=== PATIENT | male | born 1955 | race Caucasian/White ===

== ENCOUNTER → 2016-03-31 | Outpatient (REF) | payer MEDICARE ==
[~2016-03-31] MED LIST: /DULO30CA OR; /FEXO18TA OR; ALBU83IN INH; ALLE25CA; ASPI81TA45 OR; ASPI81TA83 OR; ASPI81TA85 PO; BABY81CH; BABY81CH OR; BACT800T; BENA25CA2 PO; CARI350T OR; CEFD300C OR; CLONIPINE IT; COLA100C PO; COLA100C2; COLA100C2 OR; COMBAER6 INH; COMBVENT; COMBVENT INH; COUM1TAB17 PO; DILAUDID IT; DULE100A INH; HYDR12.55 PO; LINZ290C PO; LISI10TA4 PO; LODINE; LOVE0.8I SC; LYRI150C OR; LYRI150C PO; LYRI75CA; LYRI75CA OR; MS C15TA5; OPAN10TA16 OR; ORASONE; OXYC10TA56; OXYC10TA97; OXYC40TA19; OXYC40TA19 OR; OXYC5CAP4; OXYC5CAP4 OR; PERC5TAB8 OR; PERC7.5T3 PO; PHEN 25; PHEN 25 PO; PRED5TA PO; PROA1AER INH; PROM50TA; SOMA350T; SOMA350T OR; TOPI25TA2 OR; ZOFR20TA PO; [UNRECOGNIZED DRUG - OTHER]; [UNRECOGNIZED DRUG - OTHER]; [UNRECOGNIZED DRUG - OTHER] PO; endocet OR
== END ==
LOC: M LAB REF 11:40
PROVIDERS: ATTEND Nurse Practitioner Adult Health
DX: L02.416 Cutaneous abscess of left lower limb (principal); L03.116 Cellulitis of left lower limb

== ENCOUNTER 2017-06-24 03:40 | Inpatient (IN) | payer MEDICARE ==
[2017-06-24] MEDS ORDERED: PROPOFOL 1,000 MG/100 ML VIAL As Ordered ×2 (03:42→08:37)
[2017-06-24] MEDS: ETOMIDATE INJ 20MG/10ML VIAL IV (03:55)
[2017-06-24] MEDS: SUCCINYLCHOLINE INJ 200 MG/10 ML VIAL (J0330) IV (03:56)
[2017-06-24] MEDS: PROPOFOL 1,000 MG in APPROPRIATE DILUENT 1 EA IV ×7 (03:58→14:48)
[2017-06-24 04:08] LABS: BASO # 0.1 10^3/uL (0.0-0.2); BASO % 0.6 % (0.0-1.0); EOS # 0.3 10^3/uL (0.0-0.50); EOS % 2.4 % (0.0-3.0); HEMATOCRIT 32.1 % (42.0-52.0); HEMOGLOBIN 9.6 g/dl (13.5-17.5); IMMATURE GRANULOCYTE % 0.6 % (0-3.0); LYMPH # 3.6 10^3/uL (1.5-4.5); LYMPH % 25.5 % (24.0-44.0); MEAN CORPUSCULAR HEMOGLOBIN 24.6 pg (27.0-33.0); MEAN CORPUSCULAR HGB CONC 29.9 g/dl (32.0-36.5); MEAN CORPUSCULAR VOLUME 82.3 fl (80.0-96.0); NEUTROPHILS # 7.8 10^3/uL (1.8-7.7); NEUTROPHILS % 54.9 % (36.0-66.0); PLATELET COUNT, AUTOMATED 212 10^3/uL (150-450); RED CELL DISTRIBUTION WIDTH 17.5 % (11.5-14.5); WHITE BLOOD COUNT 14.2 10^3/uL (4.0-10.0)
[2017-06-24 04:09] LABS: ABG BASE EXCESS -9.9 (-2.0-2.0); ABG HCO3 20.2 MEQ/L (22.0-26.0); ABG O2 SATURATION 98.8 % (95.0-99.0); ABG PARTIAL PRESSURE O2 172.6 mmHg (75.0-100.0); ABG STANDARD HCO3 16.5 MEQ/L (22.0-26.0); ABG TOTAL CO2 22.3 MEQ/L (23.0-31.0)
[2017-06-24 04:10] LABS: ABG PARTIAL PRESSURE CO2 67.9 mmHg (35.0-45.0); ABG pH (ARTERIAL) 7.092 UNITS (7.350-7.450)
[2017-06-24] MEDS: VECURONIUM BROMIDE 10 MG VIAL IV ×2 (04:11→05:37)
[2017-06-24 04:17] LABS: ANION GAP 9 MEQ/L (8-16); BLOOD UREA NITROGEN 13 MG/DL (7-18); CALCIUM LEVEL 7.9 MG/DL (8.8-10.2); CARBON DIOXIDE LEVEL 23 MEQ/L (21-32); CHLORIDE LEVEL 107 MEQ/L (98-107); CREATININE FOR GFR 1.09 MG/DL (0.70-1.30); GLOMERULAR FILTRATION RATE > 60.0 (>49); GLUCOSE, FASTING 234 MG/DL (70-100); POTASSIUM SERUM 4.2 MEQ/L (3.5-5.1); SODIUM LEVEL 139 MEQ/L (136-145)
[2017-06-24] MEDS ORDERED: PROPOFOL 200 MG/20 ML VIAL As Ordered (04:21)
[2017-06-24] MEDS: FUROSEMIDE 100 MG/10 ML VIAL (J1940) IV (04:22)
[2017-06-24] MEDS: ALBUTEROL SULFATE 2.5 MG/0.5 ML INH NEB SOLN NEB ×2 (04:27→05:19)
[2017-06-24] MEDS: PROPOFOL 200 MG/20 ML VIAL IV (04:30)
[2017-06-24 04:36] LABS: LACTIC ACID SEPSIS PROTOCOL 5.7 MMOL/L (0.4-2.0)
[2017-06-24 04:39] LABS: MONO # 2.3 10^3/uL (0.0-0.8); POSITIVE DIFF POS FLAG
[2017-06-24 04:49] LABS: NT-PRO BNP 4836 PG/ML (<125)
[2017-06-24] MEDS: dexameTHASONE 20 MG/5 ML VIAL (J1100) IV (04:50)
[2017-06-24] MEDS: CEFUROXIME SODIUM 1.5 GM in D5W MINI-BAG PLUS 50 ML IV (05:17)
[2017-06-24] MEDS: HumaLOG INSULIN (NovoLOG) PER UNIT SC ×2 (06:00→12:00)
[2017-06-24] MEDS ORDERED: GLUCOSE 4 GM CHEW TABLET PO (06:15)
[2017-06-24] MEDS ORDERED: GLUCAGON FOR INJ 1 MG VIAL (J1610) SC (06:15)
[2017-06-24] MEDS ORDERED: DEXTROSE 50% 50 ML SYRINGE IV (06:15)
[2017-06-24 06:24] LABS: ALBUMIN 3.1 GM/DL (3.2-5.2); CPK CREATINE PHOSPHOKINASE 133 U/L (39-308)
[2017-06-24 06:35] LABS: CK-MB VALUE MASS 5.2 NG/ML (<3.6); TROPONIN I 1.62 NG/ML (< 0.10)
[2017-06-24] MEDS: MORPHINE 4 MG/ML 1ML VIAL/SYRINGE (J2270) IV (07:19)
[2017-06-24] MEDS ORDERED: SUCCINYLCHOLINE 100 MG/5 ML SYRINGE (J0330) (07:20)
[2017-06-24] MEDS ORDERED: VECURONIUM BROMIDE 10 MG VIAL (07:20)
[2017-06-24] MEDS ORDERED: ETOMIDATE INJ 20MG/10ML VIAL (07:20)
[2017-06-24 07:48] LABS: BEDSIDE GLUCOSE 123 MG/DL (80-115)
[2017-06-24] MEDS: CHLORHEXIDINE ORAL RINSE 0.12%/15ML 120ML BOTTLE MT (08:14)
[2017-06-24] MEDS: PANTOPRAZOLE 40MG INJ (PROTONIX) (C9113) IV (08:14)
[2017-06-24] MEDS: ENOXAPARIN 60 MG/0.6 ML SYR (J1650) SC (08:14)
[2017-06-24] MEDS: ATORVASTATIN 20 MG TAB PO (08:15)
[2017-06-24] MEDS: ASPIRIN 81 MG CHEW TABLET GT (08:15)
[2017-06-24] MEDS: AZITHROMYCIN INJ 500 MG, VIAL MATE ADAPTER 1 EACH in D5W 250 ML IV (08:15)
[2017-06-24] MEDS: IPRATROPIUM 0.5MG/ALBUTEROL 2.5MG INH SOL UD 3ML (DUONEB)(J7620) NEB ×2 (08:26→11:48)
[2017-06-24 08:35] LABS: INR 1.32; PROTHROMBIN TIME 16.6 SECONDS (12.4-14.5)
[2017-06-24 08:36] LABS: PARTIAL THROMBOPLASTIN TIME 39.1 SECONDS (26.8-37.9)
[2017-06-24 08:45] LABS: ALBUMIN 3.1 GM/DL (3.2-5.2); ALBUMIN/GLOBULIN RATIO 0.84 (1.00-1.93); ALKALINE PHOSPHATASE 146 U/L (45-117); ALT/SGPT 75 U/L (12-78); ANION GAP 6 MEQ/L (8-16); AST/SGOT 142 U/L (7-37); BILIRUBIN,TOTAL 0.4 MG/DL (0.2-1.0); BLOOD UREA NITROGEN 14 MG/DL (7-18); CALCIUM LEVEL 7.6 MG/DL (8.8-10.2); CARBON DIOXIDE LEVEL 27 MEQ/L (21-32); CHLORIDE LEVEL 107 MEQ/L (98-107); CHOLESTEROL LEVEL 156 MG/DL (< 200); CK-MB VALUE MASS 18.2 NG/ML (<3.6); CPK CREATINE PHOSPHOKINASE 279 U/L (39-308); CREATININE FOR GFR 0.88 MG/DL (0.70-1.30); GLOMERULAR FILTRATION RATE > 60.0 (>49); GLUCOSE, FASTING 117 MG/DL (70-100); LDH LACTATE DEHYDROGENASE 343 U/L (87-241); MB/CK RELATIVE INDEX 6.52 (< OR =4); PHOSPHORUS LEVEL 4.3 MG/DL (2.5-4.9); POTASSIUM SERUM 4.7 MEQ/L (3.5-5.1); SODIUM LEVEL 140 MEQ/L (136-145); TOTAL PROTEIN 6.8 GM/DL (6.4-8.2); TRIGLYCERIDES LEVEL 84 MG/DL (<150)
[2017-06-24 08:47] LABS: TROPONIN I 6.47 NG/ML (< 0.10)
[2017-06-24 08:56] LABS: ABG BASE EXCESS -2.3 (-2.0-2.0); ABG HCO3 24.3 MEQ/L (22.0-26.0); ABG O2 SATURATION 98.5 % (95.0-99.0); ABG PARTIAL PRESSURE CO2 50.1 mmHg (35.0-45.0); ABG STANDARD HCO3 22.6 MEQ/L (22.0-26.0); ABG TOTAL CO2 25.9 MEQ/L (23.0-31.0); ABG pH (ARTERIAL) 7.304 UNITS (7.350-7.450)
[2017-06-24] MEDS ORDERED: ENOXAPARIN 40 MG/0.4 ML SYRINGE (J1650) SC (09:00)
[2017-06-24] MEDS: methylPREDNISolone INJ 125 MG/2 ML VIAL (J2930) IV (10:54)
[2017-06-24] MEDS: TICAGRELOR 90 MG TABLET (BRILINTA) PO (10:54)
[2017-06-24 12:15] LABS: BEDSIDE GLUCOSE 181 MG/DL (80-115)
[2017-06-24] MEDS: cefTRIAXone SOD 2 GM in D5W 50 ML IV (13:00)
[2017-06-24 14:29] LABS: CK-MB VALUE MASS 98.3 NG/ML (<3.6); CPK CREATINE PHOSPHOKINASE 974 U/L (39-308); MB/CK RELATIVE INDEX 10.09 (< OR =4)
== END 2017-06-24 15:00 | disposition short-term general hospital (02) | DRG 208 ==
LOC: M ED 03:40 → M ED INP 05:54 → M ICU 06:41
PROC: 5A1935Z Respiratory Ventilation, Less than 24 Consecutive Hours (ICD-10-PCS; principal; 2017-06-24)
DX: J96.01 Acute respiratory failure with hypoxia (principal); J81.0 Acute pulmonary edema; E87.2 Acidosis; I24.9 Acute ischemic heart disease, unspecified; J96.02 Acute respiratory failure with hypercapnia; D64.9 Anemia, unspecified; J44.9 Chronic obstructive pulmonary disease, unspecified; Z79.52 Long term (current) use of systemic steroids; F17.200 Nicotine dependence, unspecified, uncomplicated; D72.829 Elevated white blood cell count, unspecified; R73.9 Hyperglycemia, unspecified; Z86.711 Personal history of pulmonary embolism; M54.5 Low back pain; Z91.041 Radiographic dye allergy status; Z85.118 Personal history of other malignant neoplasm of bronchus and lung; Z79.899 Other long term (current) drug therapy

== ENCOUNTER → 2017-08-03 | Outpatient (REF) | payer MEDICARE ==
[2017-08-03 19:31] LABS: IRON (FE) 16 UG/DL (65-175)
== END ==
LOC: M LAB REF 18:02
DX: D50.9 Iron deficiency anemia, unspecified (principal)
CPT/HCPCS: 83540

== ENCOUNTER → 2017-08-18 | Outpatient (CLI) | payer MEDICARE | LOC: M RAD 08:12 | DX: I73.9 Peripheral vascular disease, unspecified (principal) | CPT/HCPCS: 93925 ==

== ENCOUNTER → 2017-09-03 | Outpatient (REF) | payer MEDICARE ==
[2017-09-03 16:40] LABS: IRON (FE) 68 UG/DL (65-175)
== END ==
LOC: M LAB REF 16:17
DX: D64.9 Anemia, unspecified (principal)
CPT/HCPCS: 83540

== ENCOUNTER → 2017-09-14 | Outpatient (CLI) | payer MEDICARE ==
[2017-09-14 08:47] LABS: HEMATOCRIT 29.8 % (42.0-52.0); HEMOGLOBIN 9.3 g/dl (13.5-17.5); MEAN CORPUSCULAR HEMOGLOBIN 26.8 pg (27.0-33.0); MEAN CORPUSCULAR HGB CONC 31.2 g/dl (32.0-36.5); MEAN CORPUSCULAR VOLUME 85.9 fl (80.0-96.0); PLATELET COUNT, AUTOMATED 213 10^3/uL (150-450); RED BLOOD COUNT 3.47 10^6/uL (4.30-6.10); RED CELL DISTRIBUTION WIDTH 19.8 % (11.5-14.5); WHITE BLOOD COUNT 10.5 10^3/uL (4.0-10.0)
[2017-09-14 09:15] LABS: ALBUMIN 3.2 GM/DL (3.2-5.2); ALBUMIN/GLOBULIN RATIO 0.86 (1.00-1.93); ALKALINE PHOSPHATASE 71 U/L (45-117); ALT/SGPT 29 U/L (12-78); AST/SGOT 23 U/L (7-37); BILIRUBIN,DIRECT 0.1 MG/DL (0.0-0.2); BILIRUBIN,TOTAL 0.4 MG/DL (0.2-1.0); CHOLESTEROL LEVEL 116 MG/DL (<200); HDL CHOLESTEROL 52 MG/DL (>40); IRON (FE) 24 UG/DL (65-175); LDL CHOLESTEROL 53.6 MG/DL (<100); NON-HDL-C 64 MG/DL; PERCENT SATURATION 7.2 % (19.7-50.0); TOTAL IRON BINDING CAPACITY 334 UG/DL (250-450); TOTAL PROTEIN 6.9 GM/DL (6.4-8.2); TRIGLYCERIDES LEVEL 52 MG/DL (<150)
== END ==
LOC: M LAB 08:05
DX: D50.0 Iron deficiency anemia secondary to blood loss (chronic) (principal); I25.10 Atherosclerotic heart disease of native coronary artery without angina pectoris; I10 Essential (primary) hypertension
CPT/HCPCS: 83550

== ENCOUNTER → 2017-09-14 | Outpatient (CLI) | payer MEDICARE ==
[2017-09-14 09:20] LABS: ALBUMIN 3.2 GM/DL (3.2-5.2); ALBUMIN/GLOBULIN RATIO 0.89 (1.00-1.93); ALKALINE PHOSPHATASE 72 U/L (45-117); ALT/SGPT 27 U/L (12-78); ANION GAP 8 MEQ/L (8-16); AST/SGOT 23 U/L (7-37); BILIRUBIN,TOTAL 0.4 MG/DL (0.2-1.0); BLOOD UREA NITROGEN 23 MG/DL (7-18); CALCIUM LEVEL 8.4 MG/DL (8.8-10.2); CARBON DIOXIDE LEVEL 29 MEQ/L (21-32); CHLORIDE LEVEL 104 MEQ/L (98-107); CREATININE FOR GFR 0.87 MG/DL (0.70-1.30); GLOMERULAR FILTRATION RATE > 60.0 (>49); GLUCOSE, FASTING 96 MG/DL (70-100); POTASSIUM SERUM 4.4 MEQ/L (3.5-5.1); SODIUM LEVEL 141 MEQ/L (136-145); TOTAL PROTEIN 6.8 GM/DL (6.4-8.2)
== END ==
LOC: M LAB 08:11
DX: I10 Essential (primary) hypertension (principal)

== ENCOUNTER 2017-09-23 14:26 | Outpatient (CLI) | payer MEDICARE ==
[~2017-09-23 14:26] MED LIST changes: -/DULO30CA OR; -/FEXO18TA OR; -ALBU83IN INH; -ALLE25CA; -ASPI81TA45 OR; -ASPI81TA83 OR; -ASPI81TA85 PO; -BABY81CH; -BABY81CH OR; -BACT800T; -BENA25CA2 PO; -CARI350T OR; -CEFD300C OR; -CLONIPINE IT; -COLA100C PO; -COLA100C2; -COLA100C2 OR; -COMBAER6 INH; -COMBVENT; -COMBVENT INH; -COUM1TAB17 PO; -DILAUDID IT; -DULE100A INH; -HYDR12.55 PO; +IRON DEXTRAN INJ 25 MG in NS 50 ML IV; -LINZ290C PO; -LISI10TA4 PO; -LODINE; -LOVE0.8I SC; -LYRI150C OR; -LYRI150C PO; -LYRI75CA; -LYRI75CA OR; -MS C15TA5; -OPAN10TA16 OR; -ORASONE; -OXYC10TA56; -OXYC10TA97; -OXYC40TA19; -OXYC40TA19 OR; -OXYC5CAP4; -OXYC5CAP4 OR; -PERC5TAB8 OR; -PERC7.5T3 PO; -PHEN 25; -PHEN 25 PO; -PRED5TA PO; -PROA1AER INH; -PROM50TA; -SOMA350T; -SOMA350T OR; -TOPI25TA2 OR; -ZOFR20TA PO; -[UNRECOGNIZED DRUG - OTHER]; -[UNRECOGNIZED DRUG - OTHER]; -[UNRECOGNIZED DRUG - OTHER] PO; -endocet OR
[2017-09-23] MEDS ORDERED: IRON DEXTRAN IV (15:00)
[2017-09-23] MEDS ORDERED: NS IV (15:00)
[2017-09-23] MEDS: IRON DEXTRAN IV ×2 (15:25→16:38)
== END 2017-09-23 20:54 | disposition home or self-care (01) ==
LOC: M OPCLIICU 14:26 → M ICU 14:35 → M OPCLIICU 20:54
DX: D64.9 Anemia, unspecified (principal)
CPT/HCPCS: J1750

== ENCOUNTER → 2017-10-15 | Outpatient (CLI) | payer MEDICARE ==
[2017-10-15 09:19] LABS: HEMATOCRIT 29.7 % (42.0-52.0); HEMOGLOBIN 9.4 g/dl (13.5-17.5); MEAN CORPUSCULAR HEMOGLOBIN 27.1 pg (27.0-33.0); MEAN CORPUSCULAR HGB CONC 31.6 g/dl (32.0-36.5); MEAN CORPUSCULAR VOLUME 85.6 fl (80.0-96.0); PLATELET COUNT, AUTOMATED 185 10^3/uL (150-450); RED BLOOD COUNT 3.47 10^6/uL (4.30-6.10); RED CELL DISTRIBUTION WIDTH 20.3 % (11.5-14.5); WHITE BLOOD COUNT 8.3 10^3/uL (4.0-10.0)
[2017-10-15 10:06] LABS: ALBUMIN 3.2 GM/DL (3.2-5.2); ANION GAP 7 MEQ/L (8-16); BLOOD UREA NITROGEN 36 MG/DL (7-18); CALCIUM LEVEL 8.4 MG/DL (8.8-10.2); CARBON DIOXIDE LEVEL 28 MEQ/L (21-32); CHLORIDE LEVEL 109 MEQ/L (98-107); CREATININE FOR GFR 1.07 MG/DL (0.70-1.30); GLOMERULAR FILTRATION RATE > 60.0 (>49); GLUCOSE, FASTING 104 MG/DL (70-100); MAGNESIUM LEVEL 2.1 MG/DL (1.8-2.4); NT-PRO BNP 759 PG/ML (<125); PHOSPHORUS LEVEL 5.6 MG/DL (2.5-4.9); SODIUM LEVEL 144 MEQ/L (136-145)
[2017-10-15 10:08] LABS: POTASSIUM SERUM 5.3 MEQ/L (3.5-5.1)
== END ==
LOC: M LAB 08:49
DX: D50.0 Iron deficiency anemia secondary to blood loss (chronic) (principal); I50.32 Chronic diastolic (congestive) heart failure
CPT/HCPCS: 83735

== ENCOUNTER 2017-11-01 04:04 | Inpatient (IN) | payer MEDICARE ==
[2017-11-01 04:53] LABS: BASO # 0.1 10^3/uL (0.0-0.2); BASO % 0.8 % (0.0-1.0); EOS # 0.7 10^3/uL (0.0-0.50); EOS % 7.1 % (0.0-3.0); HEMATOCRIT 24.9 % (42.0-52.0); HEMOGLOBIN 7.8 g/dl (13.5-17.5); IMMATURE GRANULOCYTE % 0.4 % (0-3.0); LYMPH # 1.8 10^3/uL (1.5-4.5); LYMPH % 19.1 % (24.0-44.0); MEAN CORPUSCULAR HEMOGLOBIN 27.8 pg (27.0-33.0); MEAN CORPUSCULAR HGB CONC 31.3 g/dl (32.0-36.5); MEAN CORPUSCULAR VOLUME 88.6 fl (80.0-96.0); MONO % 10.9 % (0.0-5.0); NEUTROPHILS # 5.8 10^3/uL (1.8-7.7); NEUTROPHILS % 61.7 % (36.0-66.0); PLATELET COUNT, AUTOMATED 211 10^3/uL (150-450); RED BLOOD COUNT 2.81 10^6/uL (4.30-6.10); RED CELL DISTRIBUTION WIDTH 19.3 % (11.5-14.5); WHITE BLOOD COUNT 9.3 10^3/uL (4.0-10.0)
[2017-11-01 05:09] LABS: PROTHROMBIN TIME 16.4 SECONDS (12.1-14.4)
[2017-11-01 05:18] LABS: ALBUMIN 3.3 GM/DL (3.2-5.2); ALKALINE PHOSPHATASE 58 U/L (45-117); ALT/SGPT 18 U/L (12-78); ANION GAP 6 MEQ/L (8-16); AST/SGOT 17 U/L (7-37); BILIRUBIN,DIRECT < 0.1 MG/DL (0.0-0.2); BILIRUBIN,TOTAL 0.2 MG/DL (0.2-1.0); BLOOD UREA NITROGEN 28 MG/DL (7-18); CALCIUM LEVEL 8.5 MG/DL (8.8-10.2); CARBON DIOXIDE LEVEL 29 MEQ/L (21-32); CHLORIDE LEVEL 105 MEQ/L (98-107); CK-MB VALUE MASS 1.9 NG/ML (<3.6); CPK CREATINE PHOSPHOKINASE 81 U/L (39-308); CREATININE FOR GFR 1.12 MG/DL (0.70-1.30); GLOMERULAR FILTRATION RATE > 60.0 (>49); GLUCOSE, FASTING 109 MG/DL (70-100); LIPASE 132 U/L (73-393); MB/CK RELATIVE INDEX 2.34 (< OR =4); POTASSIUM SERUM 4.4 MEQ/L (3.5-5.1); SODIUM LEVEL 140 MEQ/L (136-145); TOTAL PROTEIN 6.6 GM/DL (6.4-8.2); TROPONIN I 0.02 NG/ML (< 0.10)
[2017-11-01] MEDS: PANTOPRAZOLE 40MG INJ (PROTONIX) (C9113) IV (07:59)
[2017-11-01] MEDS: PANTOPRAZOLE SODIUM 40 MG in D5W 50 ML IV ×5 (07:59→23:40)
[2017-11-01 08:32] LABS: IMMEDIATE SPIN CROSSMATCH 1 2
[2017-11-01] MEDS: NS 1,000 ML IV (10:00)
[2017-11-01] MEDS ORDERED: FLUTICASONE PROP 0.05% NASAL SPRAY 16 GM (FLONASE) NARES (11:15)
[2017-11-01] MEDS ORDERED: PILL CRUSHER/CUTTER 1 EACH XX (11:45)
[2017-11-01] MEDS: PREGABALIN 75 MG CAP(LYRICA) PO ×2 (12:26→20:51)
[2017-11-01] MEDS: MORPHINE 30 MG TAB **MSIR PO (12:26)
[2017-11-01] MEDS: ASPIRIN 81 MG ENTERIC TAB PO (12:27)
[2017-11-01] MEDS: MORPHINE 15 MG SA TAB PO ×2 (12:27→20:51)
[2017-11-01] MEDS: MULTIVITAMINS/MINERALS THERAP 1 TAB PO (12:27)
[2017-11-01] MEDS: FERROUS SULFATE 325MG TAB PO ×3 (12:28→20:51)
[2017-11-01] MEDS: DOCUSATE SODIUM 100 MG CAP PO ×3 (12:28→20:51)
[2017-11-01] MEDS: SUCRALFATE 1 GM TAB PO ×3 (14:49→20:51)
[2017-11-01] MEDS ORDERED: ALBUTEROL SULFATE 2.5 MG/0.5 ML INH NEB SOLN INH (15:15)
[2017-11-01 17:34] LABS: HEMATOCRIT 31.9 % (42.0-52.0); HEMOGLOBIN 10.1 g/dl (13.5-17.5); MEAN CORPUSCULAR HEMOGLOBIN 27.6 pg (27.0-33.0); MEAN CORPUSCULAR HGB CONC 31.7 g/dl (32.0-36.5); MEAN CORPUSCULAR VOLUME 87.2 fl (80.0-96.0); PLATELET COUNT, AUTOMATED 192 10^3/uL (150-450); RED BLOOD COUNT 3.66 10^6/uL (4.30-6.10); RED CELL DISTRIBUTION WIDTH 18.6 % (11.5-14.5); WHITE BLOOD COUNT 7.6 10^3/uL (4.0-10.0)
[2017-11-01] MEDS: ATORVASTATIN 20 MG TAB PO (20:51)
[2017-11-01] MEDS: MORPHINE 30 MG SA TAB PO (20:52)
[2017-11-01] MEDS: ADVAIR HFA 230/21MCG INHALER INH (23:28)
[2017-11-01 23:42] LABS: HEMATOCRIT 30.3 % (42.0-52.0); HEMOGLOBIN 9.6 g/dl (13.5-17.5)
[2017-11-02] MEDS: PANTOPRAZOLE SODIUM 40 MG in D5W 50 ML IV (05:16)
[2017-11-02] MEDS: MORPHINE 30 MG SA TAB PO (06:21)
[2017-11-02] MEDS: MORPHINE 30 MG TAB **MSIR PO (06:22)
[2017-11-02 06:31] LABS: BASO # 0.1 10^3/uL (0.0-0.2); BASO % 1.2 % (0.0-1.0); EOS # 0.5 10^3/uL (0.0-0.50); EOS % 7.5 % (0.0-3.0); HEMATOCRIT 29.9 % (42.0-52.0); HEMOGLOBIN 9.5 g/dl (13.5-17.5); IMMATURE GRANULOCYTE % 0.6 % (0-3.0); LYMPH # 1.3 10^3/uL (1.5-4.5); MEAN CORPUSCULAR HEMOGLOBIN 27.3 pg (27.0-33.0); MEAN CORPUSCULAR HGB CONC 31.8 g/dl (32.0-36.5); MEAN CORPUSCULAR VOLUME 85.9 fl (80.0-96.0); MONO # 0.9 10^3/uL (0.0-0.8); MONO % 13.2 % (0.0-5.0); NEUTROPHILS # 4.1 10^3/uL (1.8-7.7); NEUTROPHILS % 58.5 % (36.0-66.0); PLATELET COUNT, AUTOMATED 206 10^3/uL (150-450); RED BLOOD COUNT 3.48 10^6/uL (4.30-6.10); RED CELL DISTRIBUTION WIDTH 18.6 % (11.5-14.5)
[2017-11-02 07:01] LABS: ALBUMIN 3.2 GM/DL (3.2-5.2); ALBUMIN/GLOBULIN RATIO 0.82 (1.00-1.93); ALKALINE PHOSPHATASE 64 U/L (45-117); ALT/SGPT 22 U/L (12-78); ANION GAP 7 MEQ/L (8-16); AST/SGOT 25 U/L (7-37); BILIRUBIN,TOTAL 0.5 MG/DL (0.2-1.0); BLOOD UREA NITROGEN 14 MG/DL (7-18); CALCIUM LEVEL 8.9 MG/DL (8.8-10.2); CARBON DIOXIDE LEVEL 25 MEQ/L (21-32); CHLORIDE LEVEL 108 MEQ/L (98-107); CREATININE FOR GFR 0.74 MG/DL (0.70-1.30); GLOMERULAR FILTRATION RATE > 60.0 (>49); GLUCOSE, FASTING 99 MG/DL (70-100); MAGNESIUM LEVEL 2.1 MG/DL (1.8-2.4); POTASSIUM SERUM 3.9 MEQ/L (3.5-5.1); SODIUM LEVEL 140 MEQ/L (136-145); TOTAL PROTEIN 7.1 GM/DL (6.4-8.2)
[2017-11-02] MEDS ORDERED: LIDOCAINE 2% INJ 100 MG/5 ML SDV (FOR ANES.) As Ordered (08:37)
[2017-11-02] MEDS ORDERED: PROPOFOL 200 MG/20 ML VIAL As Ordered (08:37)
[2017-11-02] MEDS ORDERED: fentaNYL 100 MCG/2 ML INJECTION (J3010) As Ordered (08:37)
[2017-11-02] MEDS: ASPIRIN 81 MG ENTERIC TAB PO (09:29)
[2017-11-02] MEDS: MULTIVITAMINS/MINERALS THERAP 1 TAB PO (09:29)
[2017-11-02] MEDS: PREGABALIN 75 MG CAP(LYRICA) PO (09:29)
[2017-11-02] MEDS: SUCRALFATE 1 GM TAB PO (09:29)
[2017-11-02] MEDS: FERROUS SULFATE 325MG TAB PO (09:29)
[2017-11-02] MEDS: DOCUSATE SODIUM 100 MG CAP PO (09:29)
[2017-11-02] MEDS: PANTOPRAZOLE 40MG TAB (PROTONIX) PO (09:29)
[2017-11-02] MEDS ORDERED: SLF 3 ML SYR IV ×2 (09:45→14:00)
[2017-11-02] MEDS: ADVAIR HFA 230/21MCG INHALER INH (10:15)
== END 2017-11-02 11:15 | disposition home or self-care (01) | DRG 378 ==
LOC: M ED 04:04 → M ED INP 08:44 → M PCU 10:33
PROVIDERS: Emergency Medicine Pediatric Emergency Medicine
PROC: 0DB68ZX Excision of Stomach, Via Natural or Artificial Opening Endoscopic, Diagnostic (ICD-10-PCS; principal; 2017-11-02 08:00)
PROC: 30233N1 Transfusion of Nonautologous Red Blood Cells into Peripheral Vein, Percutaneous Approach (ICD-10-PCS; 2017-11-02 08:22)
DX: K92.2 Gastrointestinal hemorrhage, unspecified (principal); D62 Acute posthemorrhagic anemia; N17.9 Acute kidney failure, unspecified; I10 Essential (primary) hypertension; I25.10 Atherosclerotic heart disease of native coronary artery without angina pectoris; I73.9 Peripheral vascular disease, unspecified; M54.5 Low back pain; Z95.1 Presence of aortocoronary bypass graft; Z95.2 Presence of prosthetic heart valve; J44.9 Chronic obstructive pulmonary disease, unspecified; Z85.118 Personal history of other malignant neoplasm of bronchus and lung; Z79.899 Other long term (current) drug therapy; Z79.82 Long term (current) use of aspirin; K44.9 Diaphragmatic hernia without obstruction or gangrene

== ENCOUNTER → 2017-11-21 | Outpatient (CLI) | payer MEDICARE ==
[2017-11-21 12:01] LABS: BASO # 0.1 10^3/uL (0.0-0.2); BASO % 0.9 % (0.0-1.0); EOS # 0.7 10^3/uL (0.0-0.50); EOS % 8.7 % (0.0-3.0); HEMATOCRIT 36.9 % (42.0-52.0); HEMOGLOBIN 11.8 g/dl (13.5-17.5); IMMATURE GRANULOCYTE % 0.1 % (0-3.0); LYMPH # 1.8 10^3/uL (1.5-4.5); MEAN CORPUSCULAR HEMOGLOBIN 27.5 pg (27.0-33.0); MONO # 1.2 10^3/uL (0.0-0.8); MONO % 15.2 % (0.0-5.0); NEUTROPHILS % 52.1 % (36.0-66.0); PLATELET COUNT, AUTOMATED 197 10^3/uL (150-450); RED BLOOD COUNT 4.29 10^6/uL (4.30-6.10); RED CELL DISTRIBUTION WIDTH 16.9 % (11.5-14.5); WHITE BLOOD COUNT 7.7 10^3/uL (4.0-10.0)
[2017-11-21 12:11] LABS: INR 1.02; PROTHROMBIN TIME 13.5 SECONDS (12.1-14.4)
[2017-11-21 12:12] LABS: PARTIAL THROMBOPLASTIN TIME 32.2 SECONDS (25.4-37.6)
[2017-11-21 12:25] LABS: ANION GAP 6 MEQ/L (8-16); BLOOD UREA NITROGEN 19 MG/DL (7-18); CALCIUM LEVEL 8.7 MG/DL (8.8-10.2); CARBON DIOXIDE LEVEL 32 MEQ/L (21-32); CHLORIDE LEVEL 105 MEQ/L (98-107); CREATININE FOR GFR 0.93 MG/DL (0.70-1.30); GLOMERULAR FILTRATION RATE > 60.0 (>49); GLUCOSE, FASTING 88 MG/DL (70-100); POTASSIUM SERUM 4.6 MEQ/L (3.5-5.1); SODIUM LEVEL 143 MEQ/L (136-145)
== END ==
LOC: M LAB 11:39
DX: Z01.818 Encounter for other preprocedural examination (principal); I70.213 Atherosclerosis of native arteries of extremities with intermittent claudication, bilateral legs; D69.8 Other specified hemorrhagic conditions
CPT/HCPCS: 80048

== ENCOUNTER → 2018-01-04 | Outpatient (CLI) | payer MEDICARE | LOC: M RAD 09:40 | DX: I70.212 Atherosclerosis of native arteries of extremities with intermittent claudication, left leg (principal) | CPT/HCPCS: 93925 ==

== ENCOUNTER → 2018-05-03 | Outpatient (REF) | payer MEDICARE ==
[~2018-05-03] MED LIST changes: +/FEXO18TA OR; +ALBU83IN INH; +ALLE25CA; +ANOR1AER INH; +ANOR1AER PO; +ASPI81TA26 PO; +ASPI81TA45 OR; +ASPI81TA83 OR; +ASPI81TA85 PO; +ATOR80TA59; +BABY81CH; +BABY81CH OR; +BACT800T; +BENA25CA2 PO; +BENA25TA10 PO; +CARI350T OR; +CARV6.25; +CEFD300C OR; +CLONIPINE IT; +COLA100C2; +COLA100C2 OR; +COLA100C5 PO; +COMBAER6 INH; +COMBVENT; +COMBVENT INH; +CORE6.25 PO; +COUM1TAB17 PO; +CYCL10TA PO; +CYMB1CAP5 OR; +DILAUDID IT; +DULE100A INH; +FLUTISP NARES; +FURO40TA2; +HYDR12.55 PO; -IRON DEXTRAN INJ 25 MG in NS 50 ML IV; +IRON65TA PO; +LAXA5TAB PO; +LINZ290C PO; +LIPI80TA PO; +LISI-542; +LISI-542 PO; +LISI10TA4 PO; +LODINE; +LOVE0.8I SC; +LYRI150C OR; +LYRI150C PO; +LYRI75CA; +LYRI75CA OR; +MORP-38 PO; +MORP15TA2 PO; +MORP30TASA PO; +MS C15TA5; +MS C15TA8 PO; +MS C30TA6 PO; +OPAN10TA16 OR; +ORASONE; +OXYC10TA56; +OXYC10TA97; +OXYC40TA19; +OXYC40TA19 OR; +OXYC5CAP4; +OXYC5CAP4 OR; +PANT40TA3; +PERC5TAB8 OR; +PERC7.5T11 PO; +PHEN 25; +PHEN 25 PO; +PRED5TA PO; +PROAAER10 INH; +PROM50TA; +PROT1TAB2 PO; +SOMA350T; +SOMA350T OR; +SPIR-10; +SPIR-10 PO; +SUCR1TA PO; +TOPI25TA2 OR; +TORS20TA2; +TORS20TA2 PO; +VITMTA PO; +XARE20TA PO; +ZOFR4TAB16 PO; +[UNRECOGNIZED DRUG - OTHER]; +[UNRECOGNIZED DRUG - OTHER]; +[UNRECOGNIZED DRUG - OTHER] PO; +endocet OR
[2018-05-03 19:02] LABS: AMYLASE 24 U/L (25-115); LIPASE 51 U/L (73-393)
== END ==
LOC: M LAB REF 17:41
PROVIDERS: ATTEND Nurse Practitioner Adult Health
DX: M54.5 Low back pain (principal)

== ENCOUNTER → 2018-06-16 | Outpatient (REF) | payer MEDICARE | LOC: M LAB REF 12:13 | PROVIDERS: ATTEND Nurse Practitioner Adult Health | DX: L02.612 Cutaneous abscess of left foot (principal) ==

== ENCOUNTER → 2018-08-27 | Outpatient (REF) | payer MEDICARE | LOC: M LAB REF 12:24 | PROVIDERS: ATTEND Nurse Practitioner Adult Health | DX: L03.032 Cellulitis of left toe (principal) ==

== ENCOUNTER → 2018-10-11 | Outpatient (REF) | payer MEDICARE ==
[~2018-10-11] MED LIST changes: -MORP-38 PO; +MORP-69 PO
[2018-10-11 16:25] LABS: CREATININE FOR GFR 1.56 MG/DL (0.70-1.30); GLOMERULAR FILTRATION RATE 48.1 (>49)
== END ==
LOC: M LABDRAW1 13:25
PROVIDERS: ATTEND Surgery Vascular Surgery
DX: I70.213 Atherosclerosis of native arteries of extremities with intermittent claudication, bilateral legs (principal)

== ENCOUNTER → 2020-04-06 | Outpatient (REF) | payer MEDICARE ==
[~2020-04-06] MED LIST changes: -ASPI81TA85 PO; +ASPI81TA86 PO; +CYCL-707 PO; -CYCL10TA PO; -LISI-542; -LISI-542 PO; +LISI-898; +LISI-898 PO; +LISI10TA22 PO; -LISI10TA4 PO; +PANT40TA29; -PANT40TA3
== END ==
LOC: M LAB REF 11:54
PROVIDERS: ATTEND Internal Medicine
DX: I50.32 Chronic diastolic (congestive) heart failure (principal)

== ENCOUNTER → 2020-11-23 | Outpatient (REF) | payer MEDICARE | LOC: M LAB REF 16:16 | PROVIDERS: ATTEND Internal Medicine | DX: I11.0 Hypertensive heart disease with heart failure (principal); I50.32 Chronic diastolic (congestive) heart failure ==

== ENCOUNTER → 2021-11-07 | Outpatient (CLI) | payer OTHER, MEDICARE ==
[~2021-11-07] VITALS: Ht 175.3 cm; Wt 87.1 kg
[~2021-11-07] MED LIST changes: +ALBU2.5V10 INH; -ALBU83IN INH; -LISI-898; -LISI-898 PO; +LISI5TAB11; +LISI5TAB11 PO
[2021-11-07 12:59] VITALS: BP 135/68
== END ==
LOC: M PAL 12:39
PROVIDERS: ATTEND Nurse Practitioner Adult Health
DX: J44.9 Chronic obstructive pulmonary disease, unspecified (principal); I25.10 Atherosclerotic heart disease of native coronary artery without angina pectoris; I73.9 Peripheral vascular disease, unspecified; Z95.5 Presence of coronary angioplasty implant and graft; G89.29 Other chronic pain; M54.9 Dorsalgia, unspecified; Z98.1 Arthrodesis status; I25.2 Old myocardial infarction; Z86.711 Personal history of pulmonary embolism; Z87.891 Personal history of nicotine dependence; Z51.5 Encounter for palliative care; Z79.51 Long term (current) use of inhaled steroids; Z79.899 Other long term (current) drug therapy; Z79.891 Long term (current) use of opiate analgesic

== ENCOUNTER → 2022-05-01 | Outpatient (CLI) | payer MEDICARE ==
[~2022-05-01] MED LIST changes: -DULE100A INH; +MOME13HF8 INH
== END ==
LOC: M RAD 12:24
PROVIDERS: ATTEND Physician Assistant
DX: Z48.812 Encounter for surgical aftercare following surgery on the circulatory system (principal); Z95.820 Peripheral vascular angioplasty status with implants and grafts

== ENCOUNTER → 2022-08-15 | Outpatient (CLI) | payer MEDICARE ==
[~2022-08-15] MED LIST changes: +FLUT50SP17 NARES; -FLUTISP NARES
== END ==
LOC: M RAD 08:55
PROVIDERS: ATTEND Physician Assistant
DX: I73.9 Peripheral vascular disease, unspecified (principal)

== ENCOUNTER → 2022-09-17 | Outpatient (CLI) | payer MEDICARE ==
[~2022-09-17] MED LIST changes: +ISOVUE-370 76% 100ML VIAL As Ordered ONE
== END ==
LOC: M RAD 07:51
PROVIDERS: ATTEND Physician Assistant
DX: I73.9 Peripheral vascular disease, unspecified (principal); I70.1 Atherosclerosis of renal artery; I70.8 Atherosclerosis of other arteries; R93.1 Abnormal findings on diagnostic imaging of heart and coronary circulation
CPT/HCPCS: 75635; Q9967

== ENCOUNTER → 2022-10-08 | Outpatient (REF) | payer MEDICARE ==
[~2022-10-08] MED LIST changes: -ISOVUE-370 76% 100ML VIAL As Ordered ONE
[2022-10-08 14:41] LABS: INR 0.93; PROTHROMBIN TIME 12.7 SECONDS (12.5-14.5)
[2022-10-08 14:52] LABS: PARTIAL THROMBOPLASTIN TIME 30.2 SECONDS (24.8-34.2)
== END ==
LOC: M LAB REF 14:10
PROVIDERS: ATTEND Internal Medicine
DX: I73.9 Peripheral vascular disease, unspecified (principal); I99.8 Other disorder of circulatory system

== ENCOUNTER → 2022-12-06 | Outpatient (CLI) | payer MEDICARE ==
[2022-12-06 08:40] LABS: BASO # 0.1 10^3/uL (0.0-0.2); BASO % 1.1 % (0.0-1.0); EOS # 0.4 10^3/uL (0.0-0.5); EOS % 4.1 % (0.0-3.0); HEMOGLOBIN 13.7 g/dl (13.5-17.5); LYMPH % 22.5 % (24.0-44.0); MEAN CORPUSCULAR HEMOGLOBIN 29.8 pg (27.0-33.0); MEAN CORPUSCULAR HGB CONC 33.4 g/dl (32.0-36.5); MEAN CORPUSCULAR VOLUME 89.1 fl (80.0-96.0); MONO # 1.1 10^3/uL (0.0-0.8); MONO % 12.3 % (2.0-8.0); NEUTROPHILS # 5.2 10^3/uL (1.5-8.5); NEUTROPHILS % 59.7 % (36.0-66.0); PLATELET COUNT, AUTOMATED 177 10^3/uL (150-450); WHITE BLOOD COUNT 8.8 10^3/uL (4.0-10.0)
[2022-12-06 09:17] LABS: ALBUMIN 3.3 G/DL (3.2-5.2); ALKALINE PHOSPHATASE 75 U/L (46-116); ALT/SGPT 25 U/L (7.0-40); AST/SGOT 31 U/L (<34); BILIRUBIN,TOTAL 0.3 MG/DL (0.3-1.2); BLOOD UREA NITROGEN 21 MG/DL (9-23); CALCIUM LEVEL 8.3 MG/DL (8.3-10.6); CARBON DIOXIDE LEVEL 28 MMOL/L (20-31); CHLORIDE LEVEL 109 MMOL/L (98-107); CHOLESTEROL LEVEL 113 MG/DL (<200); CHOLESTEROL RISK RATIO 2.89 (<5); CREATININE FOR GFR 0.85 MG/DL (0.70-1.30); GLOMERULAR FILTRATION RATE > 60.0 (>49); GLUCOSE, FASTING 101 MG/DL (74-106); HDL CHOLESTEROL 39.1 MG/DL (>40); LDL CHOLESTEROL 59.5 MG/DL (<100); NON-HDL-C 73.9 MG/DL; POTASSIUM SERUM 4.7 MMOL/L (3.5-5.1); SODIUM LEVEL 140 MMOL/L (136-145); TOTAL PROTEIN 6.6 G/DL (5.7-8.2); TRIGLYCERIDES LEVEL 72 MG/DL (<150)
== END ==
LOC: M LAB 08:18
PROVIDERS: ATTEND Internal Medicine Cardiovascular Disease
DX: I50.32 Chronic diastolic (congestive) heart failure (principal)

== ENCOUNTER → 2022-12-10 | Outpatient (CLI) | payer MEDICARE | LOC: M WHC 10:36 | PROVIDERS: ATTEND Internal Medicine Cardiovascular Disease | DX: I73.9 Peripheral vascular disease, unspecified (principal) ==

== ENCOUNTER → 2024-04-27 | Outpatient (REF) | payer MEDICARE ==
[~2024-04-27] MED LIST changes: +ATOR-398 PO; -FLUT50SP17 NARES; +FLUTISP NARES; -LIPI80TA PO
[2024-04-28 16:12] LABS: C REACTIVE PROTEIN QUANTITATIV 1.52 MG/DL (<1.0); RHEUMATOID FACTOR QUANT 11.9 IU/ML (<14)
== END ==
LOC: M LAB REF 12:22
PROVIDERS: ATTEND Internal Medicine
DX: I11.0 Hypertensive heart disease with heart failure (principal); M13.0 Polyarthritis, unspecified

== ENCOUNTER → 2024-05-18 | Outpatient (REF) | payer MEDICARE | LOC: M LAB REF 17:17 | PROVIDERS: ATTEND Internal Medicine | DX: M25.561 Pain in right knee (principal) ==

== ENCOUNTER → 2024-06-16 | Outpatient (REF) | payer MEDICARE | LOC: M LAB REF 12:50 | PROVIDERS: ATTEND Internal Medicine | DX: M10.9 Gout, unspecified (principal) ==

== ENCOUNTER → 2024-06-27 | Outpatient (CLI) | payer MEDICARE | LOC: M PLARAD 11:35 | PROVIDERS: ATTEND Internal Medicine | DX: C34.11 Malignant neoplasm of upper lobe, right bronchus or lung (principal) | CPT/HCPCS: 78815; A9552 ==

== ENCOUNTER 2024-11-29 10:21 | Inpatient (IN) | payer MEDICARE ==
[~2024-11-29] VITALS: Ht 172.7 cm; Wt 72.8 kg
[2024-11-29 11:24] LABS: VENOUS BASE EXCESS 3.0 (-2.0-2.0); VENOUS HCO3 29.3 MMOL/L (23.0-27.0); VENOUS O2 SATURATION 57.0 % (60.0-80.0); VENOUS PARTIAL PRESSURE CO2 51.1 mmHg (38.0-50.0); VENOUS PARTIAL PRESSURE O2 29.1 mmHg (30.0-50.0); VENOUS PH 7.376 UNITS (7.330-7.430); VENOUS STANDARD HCO3 26.1 MMOL/L; VENOUS TOTAL CO2 30.8 MMOL/L (24.0-28.0)
[2024-11-29 11:36] LABS: BASO # 0.0 10^3/uL (0.0-0.2); BASO % 0.3 % (0.0-1.0); EOS # 0.0 10^3/uL (0.0-0.5); EOS % 0.2 % (0.0-3.0); LYMPH # 1.4 10^3/uL (1.5-5.0); LYMPH % 11.9 % (24.0-44.0); MONO # 1.9 10^3/uL (0.0-0.8); MONO % 16.5 % (2.0-8.0); NEUTROPHILS # 8.2 10^3/uL (1.5-8.5); NEUTROPHILS % 70.7 % (36.0-66.0); PLATELET COUNT, AUTOMATED 167 10^3/uL (150-450)
[2024-11-29] MEDS: NALOXONE INJ 0.4 MG/1 ML VIAL IV STA ×4 (11:50→16:06)
[2024-11-29 12:13] LABS: ABG BASE EXCESS 1.4 (-2.0-2.0); ABG HCO3 25.0 MMOL/L (22.0-26.0); ABG O2 SATURATION 89.2 % (95.0-99.0); ABG PARTIAL PRESSURE CO2 36.0 mmHg (35.0-45.0); ABG PARTIAL PRESSURE O2 54.6 mmHg (75.0-100.0); ABG STANDARD HCO3 25.5 MMOL/L. (22.0-26.0); ABG TOTAL CO2 26.1 MMOL/L (23.0-31.0); ABG pH (ARTERIAL) 7.459 UNITS (7.350-7.450)
[2024-11-29 12:36] LABS: CK-MB VALUE MASS 19.4 NG/ML (<3.6)
[2024-11-29 12:38] LABS: ALT/SGPT 64.0 U/L (7.0-40); AST/SGOT 127.0 U/L (<34); CPK CREATINE PHOSPHOKINASE 988.0 U/L (46-171); MB/CK RELATIVE INDEX 1.96 (< OR =4)
[2024-11-29 12:40] LABS: THYROXINE (T4) 6.0 UG/DL (4.5-10.9)
[2024-11-29] MEDS: ONDANSETRON 4MG 2ML VIAL IV ONE (12:56)
[2024-11-29] MEDS ORDERED: COLC0.6T53 PO (13:28)
[2024-11-29] MEDS ORDERED: ALLO200T PO (13:28)
[2024-11-29] MEDS ORDERED: CLOP75TA2 PO (13:28)
[2024-11-29] MEDS ORDERED: TORS100T PO (13:28)
[2024-11-29] MEDS ORDERED: ALBU2.5V10 NEB (13:28)
[2024-11-29] MEDS ORDERED: BENA25CA4 PO (13:28)
[2024-11-29] MEDS ORDERED: POTA-151 PO (13:28)
[2024-11-29] MEDS ORDERED: TREL1AER PO (13:28)
[2024-11-29] MEDS ORDERED: PRED10TA2 PO (13:28)
[2024-11-29] MEDS ORDERED: CARV6.25 PO (13:28)
[2024-11-29] MEDS ORDERED: HOME MED LIST COMPLETE! XX SCH (13:30)
[2024-11-29] MEDS: IPRATROPIUM 0.5 MG/ALBUTEROL 2.5 MG INH SOL UD 3 ML NEB SCH (16:14)
[2024-11-29 17:02] LABS: CALCIUM LEVEL 7.8 MG/DL (8.3-10.6); CARBON DIOXIDE LEVEL 31 MMOL/L (20-31); CHLORIDE LEVEL 108 MMOL/L (98-107); CREATININE FOR GFR 0.61 MG/DL (0.70-1.30); GLOMERULAR FILTRATION RATE > 90.0 (>49); POTASSIUM SERUM 3.3 MMOL/L (3.5-5.1); SODIUM LEVEL 148 MMOL/L (136-145)
[2024-11-29 17:03] LABS: CPK CREATINE PHOSPHOKINASE 697 U/L (46-171)
[2024-11-29] MEDS ORDERED: IPRATROPIUM 0.5 MG/ALBUTEROL 2.5 MG INH SOL UD 3 ML NEB PRN (17:10)
[2024-11-29] MEDS: NS (Normal Saline) 0.9% 1,000 ML IV SCH (17:11)
[2024-11-29] MEDS: AZITHROMYCIN INJ 500 MG, VIAL MATE ADAPTER 1 EACH in NS 250 ML IV SCH (17:36)
[2024-11-29] MEDS ORDERED: ISOVUE-370 76% 100 ML VIAL As Ordered ONE (17:53)
[2024-11-29] MEDS: KCL 10MEQ/100ML SWI (KRUN) 10 MEQ in IV 1 EA IV SCH (18:56)
[2024-11-29] MEDS ORDERED: GLUCOSE 4 GM CHEW PO PRN (19:20)
[2024-11-29] MEDS ORDERED: DEXTROSE 50% 50 ML SYRINGE IV PRN (19:20)
[2024-11-29] MEDS ORDERED: GLUCAGON INJ 1 MG VIAL SC PRN (19:20)
[2024-11-29] MEDS: cefTRIAXone SOD 2 GM in DEXTROSE 5% (D5W) ADV/MINI-BAG 50 ML IV SCH (19:41)
[2024-11-29] MEDS: SYMBICORT 160/4.5MCG INHALER 6GM INH SCH (20:08)
[2024-11-29] MEDS: COMBIVENT RESPIMAT 100-20 MCG INHALER 4 GM INH SCH (20:08)
[2024-11-29 20:34] LABS: ABG BASE EXCESS -3.2 (-2.0-2.0); ABG HCO3 20.9 MMOL/L (22.0-26.0); ABG O2 SATURATION 88.2 % (95.0-99.0); ABG PARTIAL PRESSURE CO2 34.9 mmHg (35.0-45.0); ABG PARTIAL PRESSURE O2 55.9 mmHg (75.0-100.0); ABG STANDARD HCO3 21.6 MMOL/L. (22.0-26.0); ABG TOTAL CO2 22.0 MMOL/L (23.0-31.0); ABG pH (ARTERIAL) 7.396 UNITS (7.350-7.450)
[2024-11-29 20:44] LABS: CALCIUM LEVEL 7.0 MG/DL (8.3-10.6); CARBON DIOXIDE LEVEL 23 MMOL/L (20-31); CHLORIDE LEVEL 110 MMOL/L (98-107); CREATININE FOR GFR 0.55 MG/DL (0.70-1.30); GLOMERULAR FILTRATION RATE > 90.0 (>49); POTASSIUM SERUM 3.7 MMOL/L (3.5-5.1); SODIUM LEVEL 143 MMOL/L (136-145)
[2024-11-29] MEDS: D5W/0.45% SODIUM CHLORIDE 1,000 ML IV SCH (22:05)
[2024-11-29] MEDS: HEPARIN SOD 5000 UNITS/ML 1 ML VIAL/SYRINGE SC SCH (22:07)
[2024-11-29 22:57] VITALS: BP 148/82; TEMP 97.3; O2SAT 96
[2024-11-29 23:29] VITALS: O2SAT 97
[2024-11-30] VITALS (19 sets, daily range): BP systolic 138–164; BP diastolic 58–72; TEMP 97.6–98.7; O2SAT 92–98
[2024-11-30 05:38] LABS: BASO # 0.0 10^3/uL (0.0-0.2); BASO % 0.1 % (0.0-1.0); EOS # 0.0 10^3/uL (0.0-0.5); EOS % 0.0 % (0.0-3.0); LYMPH # 1.0 10^3/uL (1.5-5.0); LYMPH % 10.9 % (24.0-44.0); MONO # 0.8 10^3/uL (0.0-0.8); MONO % 9.6 % (2.0-8.0); NEUTROPHILS # 6.9 10^3/uL (1.5-8.5); NEUTROPHILS % 79.1 % (36.0-66.0); PLATELET COUNT, AUTOMATED 150 10^3/uL (150-450)
[2024-11-30 06:10] LABS: CALCIUM LEVEL 7.3 MG/DL (8.3-10.6); CARBON DIOXIDE LEVEL 26 MMOL/L (20-31); CHLORIDE LEVEL 114 MMOL/L (98-107); CREATININE FOR GFR 0.57 MG/DL (0.70-1.30); GLOMERULAR FILTRATION RATE > 90.0 (>49); MAGNESIUM LEVEL 1.8 MG/DL (1.8-2.4); POTASSIUM SERUM 3.6 MMOL/L (3.5-5.1); SODIUM LEVEL 148 MMOL/L (136-145)
[2024-11-30] MEDS: TIOTROPIUM BROM 2.5MCG/ACTUATION 4GM INH INH SCH (08:29)
[2024-11-30] MEDS: PANTOPRAZOLE 40MG VIAL IV SCH (08:33)
[2024-11-30 17:45] LABS: CPK CREATINE PHOSPHOKINASE 230 U/L (46-171)
[2024-11-30 17:49] LABS: ALT/SGPT 53 U/L (7.0-40); AST/SGOT 69 U/L (<34); CALCIUM LEVEL 7.1 MG/DL (8.3-10.6); CARBON DIOXIDE LEVEL 25 MMOL/L (20-31); CHLORIDE LEVEL 110 MMOL/L (98-107); CREATININE FOR GFR 0.53 MG/DL (0.70-1.30); GLOMERULAR FILTRATION RATE > 90.0 (>49); POTASSIUM SERUM 3.7 MMOL/L (3.5-5.1); SODIUM LEVEL 139 MMOL/L (136-145)
[2024-11-30 18:15] LABS: OSMOLALITY SERUM 295 MOSM/KG (280-301)
[2024-11-30 18:51] LABS: APPEARANCE, URINE CLEAR (CLEAR); BACTERIA, URINE AUTO NEGATIVE (NEGATIVE); BILIRUBIN, URINE AUTO NEGATIVE (NEGATIVE); BLOOD, URINE BLOOD 2+ (NEGATIVE); GLUCOSE, URINE (UA) AUTO NEGATIVE (NEGATIVE); KETONE, URINE AUTO NEGATIVE (NEGATIVE); LEUKOCYTE ESTERASE, URINE AUTO NEGATIVE (NEGATIVE); MUCUS, URINE SMALL (NEGATIVE); NITRITE, URINE AUTO NEGATIVE (NEGATIVE); PROTEIN, URINE AUTO 1+ mg/dL (NEGATIVE); RBC, URINE AUTO 32 /HPF (0-3); SPECIFIC GRAVITY URINE AUTO 1.020 (1.002-1.035); SQUAMOUS EPITHELIAL CELL UR AU 0 /HPF (0-6); UROBILINOGEN, URINE AUTO 0.2 mg/dL (0.0-2.0); WBC, URINE AUTO 2 /HPF (0-3)
[2024-11-30] MEDS: RAMELTEON 8 MG TAB PO ONE (21:12)
[2024-12-01] VITALS (27 sets, daily range): BP systolic 137–175; BP diastolic 62–74; TEMP 97.2–98.4; O2SAT 91–96
[2024-12-01] MEDS: IBUPROFEN 600 MG TAB PO ONE (02:58)
[2024-12-01 06:08] LABS: PLATELET COUNT, AUTOMATED 153 10^3/uL (150-450)
[2024-12-01 06:31] LABS: ALT/SGPT 48 U/L (7.0-40); AST/SGOT 49 U/L (<34); CALCIUM LEVEL 7.3 MG/DL (8.3-10.6); CARBON DIOXIDE LEVEL 24 MMOL/L (20-31); CHLORIDE LEVEL 107 MMOL/L (98-107); CREATININE FOR GFR 0.54 MG/DL (0.70-1.30); GLOMERULAR FILTRATION RATE > 90.0 (>49); POTASSIUM SERUM 3.6 MMOL/L (3.5-5.1); SODIUM LEVEL 139 MMOL/L (136-145)
[2024-12-01] MEDS: AZITHROMYCIN 250 MG TABLET PO ONE (17:18)
[2024-12-02] VITALS (18 sets, daily range): BP systolic 139–178; BP diastolic 71–77; TEMP 97.4–98; O2SAT 92–96
[2024-12-02] MEDS: traZODone 25MG PER 1/2 TABLET PO ONE (02:33)
[2024-12-02 06:24] LABS: PLATELET COUNT, AUTOMATED 196 10^3/uL (150-450)
[2024-12-02 06:42] LABS: ALT/SGPT 42 U/L (7.0-40); AST/SGOT 32 U/L (<34); CALCIUM LEVEL 7.7 MG/DL (8.3-10.6); CARBON DIOXIDE LEVEL 24 MMOL/L (20-31); CHLORIDE LEVEL 108 MMOL/L (98-107); CREATININE FOR GFR 0.56 MG/DL (0.70-1.30); GLOMERULAR FILTRATION RATE > 90.0 (>49); POTASSIUM SERUM 4.0 MMOL/L (3.5-5.1); SODIUM LEVEL 141 MMOL/L (136-145)
[2024-12-02] MEDS: ATORVASTATIN 20 MG TAB PO SCH (20:15)
[2024-12-03 00:08] VITALS: BP 160/70; TEMP 98.8; O2SAT 92
[2024-12-03 04:16] VITALS: BP 160/70; TEMP 97.9; O2SAT 95
[2024-12-03 05:56] LABS: PLATELET COUNT, AUTOMATED 206 10^3/uL (150-450)
[2024-12-03 06:18] LABS: CALCIUM LEVEL 7.6 MG/DL (8.3-10.6); CARBON DIOXIDE LEVEL 25 MMOL/L (20-31); CHLORIDE LEVEL 108 MMOL/L (98-107); CREATININE FOR GFR 0.58 MG/DL (0.70-1.30); GLOMERULAR FILTRATION RATE > 90.0 (>49); POTASSIUM SERUM 4.1 MMOL/L (3.5-5.1); SODIUM LEVEL 139 MMOL/L (136-145)
[2024-12-03] MEDS: PANTOPRAZOLE 40MG TAB PO SCH (09:37)
[2024-12-03] MEDS: predniSONE 20 MG TAB PO SCH (09:37)
[2024-12-03] MEDS: ASPIRIN 81 MG ENTERIC TABLET PO SCH (09:37)
[2024-12-03 09:40] VITALS: BP 123/62
[2024-12-03] MEDS: SPIRONOLACTONE 12.5MG PER 1/2 TABLET PO SCH (09:40)
[2024-12-03] MEDS: TORSEMIDE 50 MG PER 1/2 TAB PO SCH (09:40)
[2024-12-03] MEDS ORDERED: CEFD1CAP9 PO (09:41)
[2024-12-03 21:49] LABS: URINE STREP PNEUMONIAE ANTIGEN Not Detected (Not Detected)
[2024-12-04 20:07] LABS: MYCOPLASMA PNEUMONIAE IGG 1.11 (<=0.90); MYCOPLASMA PNEUMONIAE IGM 81.0 U/mL (<770)
== END 2024-12-03 13:26 | disposition home or self-care (01) | DRG 917 ==
LOC: M ED 10:21 → EEVIPCON 16:38 → M ED INP 16:38 → M PCU 22:52 → M MSPAV 12-03 00:07
PROVIDERS: ADMIT Student in an Organized Health Care Education/Training Program; ATTEND Family Medicine
DX: T40.2X1A Poisoning by other opioids, accidental (unintentional), initial encounter (principal); G93.41 Metabolic encephalopathy; J15.9 Unspecified bacterial pneumonia; J12.9 Viral pneumonia, unspecified; E87.0 Hyperosmolality and hypernatremia; J44.1 Chronic obstructive pulmonary disease with (acute) exacerbation; I50.9 Heart failure, unspecified; K21.9 Gastro-esophageal reflux disease without esophagitis; E87.6 Hypokalemia; Z95.1 Presence of aortocoronary bypass graft; R10.9 Unspecified abdominal pain; E86.0 Dehydration; J01.10 Acute frontal sinusitis, unspecified; M19.90 Unspecified osteoarthritis, unspecified site; Z95.5 Presence of coronary angioplasty implant and graft; I25.10 Atherosclerotic heart disease of native coronary artery without angina pectoris; F17.200 Nicotine dependence, unspecified, uncomplicated; Z86.711 Personal history of pulmonary embolism; Z89.422 Acquired absence of other left toe(s); Z79.899 Other long term (current) drug therapy; Z79.52 Long term (current) use of systemic steroids